=== PATIENT | female | born 1995 | race Caucasian/White ===

== ENCOUNTER 2021-06-03 22:40 | Inpatient (IN) | payer OTHER ==
[~2021-06-03] VITALS: Ht 167.6 cm; Wt 67.1 kg
[2021-06-03 22:56] VITALS: BP 136/87
--- NOTE | 2021-06-03 23:01 | NUR ---
Dr. Terrazas at triage to exam patient.
--- NOTE | 2021-06-03 23:30 | NUR ---
26 Y/O FEMALE BIB FAMILY MEMBER C/O OF THROAT PAIN X 1 DAY. UPON PALPATION OF THE THROAT, TENDERNESS, DIFFICULTY SWALLOWING, AND SOME SWELLING NOTED. PT TONGUE APPEARS ENLARGED, AND WHITE. PT DENIES N/V/D AND FEVER. PT DENIES HAVING DIFFICULTY BREATHING, SOB. RESPIRATIONS ARE EVEN AND UNLABORED. PT DENIES TAKING ANY MEDICATION TO TREAT SYMPTOMS. PT A&OX4. PMEDHX: ANEMIA NKDA
[2021-06-03] MEDS ORDERED: KETOROLAC 30 MG/ML VIAL IVP ONE (23:35)
[2021-06-03] MEDS ORDERED: MORPHINE SULFATE 4 MG/ML SYR IVP ONE (23:35)
[2021-06-03] MEDS ORDERED: ONDANSETRON 4 MG/2 ML VIAL IVP ONE (23:35)
[2021-06-03] MEDS ORDERED: CLINDAMYCIN 600 MG in DEXTROSE 5% 50 ML IV ONE (23:35)
[2021-06-03] MEDS ORDERED: DEXAMETHASONE 10 MG/ML VIAL IVP ONE (23:35)
[2021-06-03] MEDS ORDERED: cefTRIAXone 2,000 MG in DEXTROSE 5% 100 ML IV ONE (23:35)
[2021-06-03 23:52] LABS: BASOPHILS # (AUTO) 0.1 K/uL (0.00-0.22); BASOPHILS % (AUTO) 0.6 % (0.0-2.0); EOSINOPHILS # (AUTO) 0.1 K/uL (0-0.4); HEMATOCRIT 41.2 % (36-48); HEMOGLOBIN 13.9 g/dL (12.0-16.0); LYMPHOCYTES # (AUTO) 1.4 K/uL (2.5-16.5); LYMPHOCYTES % (AUTO) 12.2 % (20.5-51.1); MEAN CORPUSCULAR HEMOGLOBIN 28 pg (27-31); MEAN CORPUSCULAR HGB CONC 34 g/dL (33-37); MEAN CORPUSCULAR VOLUME 84.1 fL (80-94); MONOCYTES # (AUTO) 0.9 K/uL (0.8-1.0); MONOCYTES % (AUTO) 7.6 % (1.7-9.3); NEUTROPHILS % (AUTO) 78.6 % (42.2-75.2); PLATELET COUNT (AUTO) 257 K/uL (140-450); RED BLOOD CELL COUNT(AUTO) 4.89 MIL/uL (4.20-5.40); RED CELL DISTRIBUTION WIDTH 15.4 % (11.6-13.7); WHITE BLOOD COUNT (AUTO) 11.4 K/uL (4.8-10.8)
--- NOTE | 2021-06-03 23:53 | NUR ---
Ambulatory to bed 2 , Patient 's family at bedside.
--- NOTE | 2021-06-03 23:53 | NUR ---
PT AMBULATED TO BED 02.
[2021-06-04 00:45] LABS: ANION GAP 12.8 (8-16); CARBON DIOXIDE 28.2 mmol/L (21-32)
[2021-06-04 00:51] LABS: ALBUMIN 4.4 g/dL (3.4-5.0); CREATININE 0.9 mg/dL (0.6-1.3)
[2021-06-04] MEDS ORDERED: cefTRIAXone 1,000 MG VIAL ONE (00:55)
[2021-06-04] MEDS ORDERED: cefTRIAXone 2,000 MG VIAL ONE (00:57)
[2021-06-04] MEDS ORDERED: DEXAMETHASONE 10 MG/ML VIAL ONE (00:59)
[2021-06-04] MEDS ORDERED: KETOROLAC 30 MG/ML VIAL ONE (01:00)
[2021-06-04] MEDS ORDERED: ONDANSETRON 4 MG/2 ML VIAL ONE (01:01)
[2021-06-04] MEDS ORDERED: CLINDAMYCIN 600 MG/4 ML VIAL ONE (01:02)
--- NOTE | 2021-06-04 01:20 | NUR ---
pt taken to ct
--- NOTE | 2021-06-04 01:28 | NUR ---
pt back from ct
[2021-06-04] MEDS ORDERED: MORPHINE SULFATE 4 MG/ML SYR ONE (02:30)
--- NOTE | 2021-06-04 03:00 | NUR ---
DR ledezma at the bedside
[2021-06-04] MEDS ORDERED: NACL 0.9% 1,000 ML IV ONE ×2 (03:05)
--- NOTE | 2021-06-04 03:43 | NUR ---
PT ADMITTED TELE HOLD BED 2
--- NOTE | 2021-06-04 04:49 | NUR ---
PT AMBULATED TO THE RESTROOM WITH STEADY GAIT
--- NOTE | 2021-06-04 07:13 | NUR ---
REPORT GIVEN THERESA GARRIDO, TRANSFER OF CARE AT THIS TIME.
--- NOTE | 2021-06-04 07:13 | NUR ---
REPORT RECEIVED FROM RADHIKA RICO, TRANSFER OF CARE AT THIS TIME.
--- NOTE | 2021-06-04 07:25 | NUR ---
RECEIVED REPORT FROM ER NURSE FOR CONTINUITY OF CARE.PT ARRIVED VIA GURNEY AND AMBULATED TO BED WITH STEADY GAIT. ALERT AND AWAKE. A&OX4. ON ROOM AIR, WITH BREATHING UNLABORED. CONTINENT OF THE BOWEL AND BLADDER. SKIN IS WARM, DRY AND INTACT. IV IS IN LEFT AC 20G AND RUNNING FLUIDS ORDERED. PT IS STABLE, AND PLAN OF CARE DISCUSSED.
[2021-06-04] MEDS ORDERED: MORPHINE SULFATE 2 MG/ML SYR IVP PRN (07:35)
[2021-06-04] MEDS ORDERED: LORazepam 2 MG/ML VIAL IM/IVP PRN (07:35)
[2021-06-04] MEDS ORDERED: ZOLPIDEM 5 MG TAB PO PRN (07:35)
[2021-06-04] MEDS ORDERED: DOCUSATE SODIUM 100 MG GELCAP PO PRN (07:35)
[2021-06-04] MEDS ORDERED: SODIUM PHOS / POTASSIUM PHOS 1 PKT PDR PO PRN (07:35)
[2021-06-04] MEDS ORDERED: ONDANSETRON 4 MG/2 ML VIAL IVP PRN (07:35)
[2021-06-04] MEDS ORDERED: POTASSIUM CHLORIDE 10 MEQ TABER PO PRN (07:35)
[2021-06-04] MEDS ORDERED: MAG SULF 2000 MG/WATER PREMIX 50 ML IV PRN (07:35)
[2021-06-04] MEDS ORDERED: ACETAMINOPHEN 325 MG TAB PO PRN (07:35)
--- NOTE | 2021-06-04 07:40 | NUR ---
Patient will be admitted to care of Dr Garcia. Admited to TELE FLOOR. Will go to room 106-A. Belongings list completed. Report to RADHIKA IBRAHIM.
[2021-06-04 08:00] VITALS: BP 111/65
[2021-06-04 09:32] LABS: PROTHROMBIN TIME 10.7 secs (10.8-13.4)
[2021-06-04 09:35] LABS: CHOL/HDL RATIO 2.4 (1-4.5); FREE T4 (FREE THYROXINE) 0.88 ng/dL (0.76-1.46); PHOSPHORUS 3.7 mg/dL (2.5-4.9); THYROID STIMULATING HORMONE 0.57 uIU/mL (0.34-3.74)
[2021-06-04] MEDS: NACL 0.9% 1,000 ML IV SCH ×2 (09:57→17:40)
--- NOTE | 2021-06-04 10:00 | NUR ---
SWABBED THROAT FOR CULTURE-STREP B, AND SENT TO LAB. MRSA SWAB ALSO COLLECTED. PT WENT TO THE RESTROOM INDEPENDENTLY WITH STEADY GAIT. PT. DENIES PAIN AT THIS TIME. NO SIGNS OF RESPIRATORY DISTRESS. V/S WERE WITHIN NORMAL LIMITS.
[2021-06-04 11:12] LABS: APPEARANCE,URINE HAZY (CLEAR); BILIRUBIN,URINE NEGATIVE (NEGATIVE); BLOOD, URINE NEGATIVE (NEGATIVE); COLOR,URINE YELLOW (YELLOW); LEUKOCYTE ESTERASE ,URINE NEGATIVE (NEGATIVE); NITRITE, URINE NEGATIVE (NEGATIVE); PH,URINE 6.5 (5.0-9.0); UGLUCOSE NEGATIVE (NEGATIVE)
[2021-06-04 11:42] LABS: CALCIUM OXALATE CRYSTALS,UR None Seen /HPF (None Seen); RBC,URINE NONE SEEN /HPF (0-5); TRICHOMONAS,URINE None Seen /HPF (None Seen); URIC ACID CRYSTALS,URINE None Seen /HPF (None Seen); WBC,URINE NONE SEEN /HPF (0-5); YEAST,URINE None Seen /HPF (None Seen)
[2021-06-04 11:43] LABS: COARSE GRANULAR CASTS,URINE None Seen /LPF (None Seen); FINE GRANULAR CASTS,URINE None Seen /LPF (None Seen); HYALINE CASTS, URINE None Seen /LPF (None Seen); OTHER CASTS, URINE None Seen /LPF (None Seen); OTHER CRYSTALS,URINE None Seen /HPF (None Seen); RED BLOOD CELL CASTS,URINE None Seen /LPF (None Seen); TRIPLE PHOSPHATE CRYSTAL,UR None Seen /HPF (None Seen); URINE AMORPHOUS URATE None Seen /HPF (None Seen); WAXY CASTS,URINE None Seen /LPF (None Seen)
[2021-06-04 11:48] LABS: BARBITURATE, URINE NEGATIVE ng/ml (NEG <=200); BENZODIAZEPINE, URINE NEGATIVE ng/mL (NEG <=200); CANNABINOID, URINE POSITIVE ng/mL (NEG <=50); COCAINE, URINE NEGATIVE ng/mL (NEG <=300); OPIATE, URINE NEGATIVE ng/mL (NEG <=2000); PHENCYCLIDINE SCREEN,URINE NEGATIVE ng/mL (NEG <=25)
[2021-06-04 12:00] VITALS: BP 106/71
[2021-06-04] MEDS: AMPICILLIN/SULBACTAM 3 GM in NACL 0.9% 100 ML IV SCH ×3 (12:59→23:42)
--- NOTE | 2021-06-04 13:00 | NUR ---
PT IS STABLE, NO DISTRESS NOTED. SITTING UP ON BED ON CELLPHONE.FLUIDS ARE RUNNING AND IV TUBES PATENT. WILL CONTINUE TO MONITOR.
--- NOTE | 2021-06-04 14:11 | NUR ---
DC PLANNING: THE PATIENT PRESENTED TO THE ED FROM HOME WITH C/O SORE THROAT. CT NECK SHOWS TONSILLITIS WITH DEVELOPING SMALL ABSCESS. PATIENT UNABLE TO SWALLOW, GIVEN TORADOL, DECADRON, ROCEPHIN AND CLINDAMYCIN WITHOUT IMPROVEMENT, ADMITTED FOR OBSERVATION AND TREATMENT. ID CONSULT ORDERED WELL BC'S AND THROAT CULTURE FOR STREP. ON AMPICILLIN AND IVF'S. CM SPOKE WITH THE PATIENT AT BEDSIDE AND CONFIRMED HER ADDRESS AND PHONE NUMBER. SHE LIVES WITH HER BROTHER IN A SECOND FLOOR APARTMENT AND IS IN THE PROCESS OF GETTING [facility], SHE THINKS WITH [facility]. IS NEWLY EMPLOYED AND INDEPENDENT IN ALL ACTIVITIES WITHOUT DEFICITS. DC PLAN IS TO RETURN HOME WHEN CLINICALLY STABLE, CM WILL FOLLOW FOR NEEDS. Addendum: 06/04/21 at 1418 by Lashell Amin CM Amended: Links added.
--- NOTE | 2021-06-04 16:00 | NUR ---
PT. LYING COMFORTABLY ON BED, USING HER CELLPHONE. DENIES PAIN OF THIS TIME. BED ON THE LOWEST POSITION. CALL LIGHT IN REACH. WILL CONTINUE TO MONITOR.
--- NOTE | 2021-06-04 16:19 | NUR ---
PATIENT HAS BEEN SCREENED AND CATEGORIZED HIGH NUTRITION RISK. PATIENT WILL BE SEEN WITHIN 1-2 DAYS OF ADMISSION. / SEVER[address] FER[address]
--- NOTE | 2021-06-04 17:24 | NUR ---
06/04/21 RD INITIAL ASSESSMENT COMPLETED PLEASE REFER TO NUTRITION ASSESSMENT UNDER CARE ACTIVITY FOR ESTIMATED NUTRITIONAL NEEDS. 1. CONTINUE REGULAR DIET TOLERATED -WILL PROVIDE NON-SPICY FOODS -RECOMMEND ENSURE BID IF PO INTAKE IS < 75% 2. RD TO FOLLOW-UP 7 DAYS, LOW RISK (DOWNGRADED D/T PT WITH NO DIFFICULTY EATING) [address]ER[address]
[2021-06-04] MEDS: HYDROcodone/APAP 5/325 MG 1 TAB TAB PO PRN (17:46)
--- NOTE | 2021-06-04 17:46 | NUR ---
PT STATES SHE HAS PAIN IN HER RIGHT SIDE OF THROAT, AT A SCALE OF 6 OUT OF 10. PT WAS GIVEN NORCO FOR PAIN. WILL MONITOR PAIN.
[2021-06-04 18:00] VITALS: BP 102/60
--- NOTE | 2021-06-04 19:20 | NUR ---
ENDORSED PT TO TRAVELING OPERATOR NURSE FOR CONTINUITY OF CARE. PT IS STABLE. PLAN OF CARE DISCUSSED.
--- NOTE | 2021-06-04 19:55 | NUR ---
RECEIVED REPORT FROM DAY SHIFT NURSE FOR CONTINUITY OF CARE.PT AWAKE, ALERT AND ORIENTED. RESTING IN BED. ON ROOM AIR, WITH BREATHING EQUAL AND UNLABORED. AFEBRILE. SKIN IS WARM, DRY AND INTACT. IV IS IN LEFT AC 20G AND RUNNING FLUIDS ORDERED. PT IS STABLE, AND PLAN OF CARE DISCUSSED.
[2021-06-04 20:00] VITALS: BP 104/60
--- NOTE | 2021-06-04 22:30 | NUR ---
ROUNDS MADE. PT AWAKE, USING HER PHONE.NO DISTRESS NOTED. NO COMPLAINS AT THIS TIME. PROVIDED WARM WATER. ALL PRECAUTIONS IN PLACE. WILL CONTINUE TO MONITOR.
[2021-06-05] VITALS: BP 106/61
--- NOTE | 2021-06-05 | NUR ---
SCHEDULED MEDICATIONS GIVEN. OT TOLERATED WELL. NO DISTRESS NOTED.
--- NOTE | 2021-06-05 00:30 | NUR ---
VS STABLE.BREATHING EQUAL AND UNLABORED. NO S/SX OF DISTRESS NOTED. ALL PRECAUTIONS IN PLACE. CALL LIGHT WITHIN REACH.WILL CONTINUE TO MONITOR.
[2021-06-05 04:00] VITALS: BP 97/67
--- NOTE | 2021-06-05 04:17 | NUR ---
PT ASLEEP.BREATHING EQUAL AND UNLABORED. NO S/SX OF DISTRESS NOTED. ALL PRECAUTIONS IN PLACE. CALL LIGHT WITHIN REACH.WILL CONTINUE TO MONITOR.
[2021-06-05] MEDS: NACL 0.9% 1,000 ML IV SCH (05:00)
--- NOTE | 2021-06-05 05:00 | NUR ---
SCHEDULED MEDICATIONS GIVEN. OT TOLERATED WELL. NO DISTRESS NOTED.
[2021-06-05] MEDS: AMPICILLIN/SULBACTAM 3 GM in NACL 0.9% 100 ML IV SCH ×2 (05:17→11:24)
[2021-06-05] MEDS: HYDROcodone/APAP 5/325 MG 1 TAB TAB PO PRN (05:17)
[2021-06-05 06:37] LABS: BASOPHILS # (AUTO) 0.1 K/uL (0.00-0.22); BASOPHILS % (AUTO) 0.6 % (0.0-2.0); EOSINOPHILS # (AUTO) 0.1 K/uL (0-0.4); EOSINOPHILS % (AUTO) 1.2 % (0.0-4.0); HEMATOCRIT 34.1 % (36-48); HEMOGLOBIN 11.5 g/dL (12.0-16.0); LYMPHOCYTES # (AUTO) 2.3 K/uL (2.5-16.5); LYMPHOCYTES % (AUTO) 22.8 % (20.5-51.1); MEAN CORPUSCULAR HEMOGLOBIN 29 pg (27-31); MEAN CORPUSCULAR HGB CONC 34 g/dL (33-37); MEAN CORPUSCULAR VOLUME 85.4 fL (80-94); MONOCYTES # (AUTO) 0.8 K/uL (0.8-1.0); MONOCYTES % (AUTO) 7.6 % (1.7-9.3); NEUTROPHILS # (AUTO) 6.9 K/uL (1.8-7.7); NEUTROPHILS % (AUTO) 67.8 % (42.2-75.2); PLATELET COUNT (AUTO) 183 K/uL (140-450); RED BLOOD CELL COUNT(AUTO) 3.99 MIL/uL (4.20-5.40); RED CELL DISTRIBUTION WIDTH 15.6 % (11.6-13.7); WHITE BLOOD COUNT (AUTO) 10.2 K/uL (4.8-10.8)
--- NOTE | 2021-06-05 06:59 | NUR ---
PT IS STABLE. NO ACUTE EVENTS THROUGHOUT THE NIGHT. NO S/SX OF DISTRESS OF THE MOMENT.ALL NEEDS ATTENDED. ALL PRECAUTIONS IN PLACE. CALL LIGHT WITHIN REACH. WILL ENDORSE TO AM SHIFT NURSE.
--- NOTE | 2021-06-05 07:20 | NUR ---
HANDOFF REPORT RECEIVED FROM PM SHIFT RADHIKA FLOWER FOR CONTINUITY OF CARE. PT. MALERT. STABLE. BREATHINGS EVEN AND UNLABORED. SAFETY MEASURES IN PLACED. WILL CONTINUE TO MONITOR THE PT.
[2021-06-05 08:00] VITALS: BP 105/71
--- NOTE | 2021-06-05 10:09 | NUR ---
PT. ALERT, AWAKE. SITTING IN THE BED. NOT IN DISTRESS. STABLE ON ROOM AIR. CONT. MONITORING THE PT.
[2021-06-05 10:57] LABS: ALBUMIN 3.1 g/dL (3.4-5.0); ANION GAP 14.4 (8-16); CARBON DIOXIDE 22.3 mmol/L (21-32); CREATININE 0.7 mg/dL (0.6-1.3); POTASSIUM 3.7 mmol/L (3.5-5.1); TOTAL BILIRUBIN 0.4 mg/dL (0.0-1.0)
[2021-06-05 12:00] VITALS: BP 103/69
--- NOTE | 2021-06-05 13:30 | NUR ---
ROUNDS. PT. SITTING IN THE BED. NO ANY ACUTED DISTRESS NOTED. STABLE ON ROOM AIR. ALL SAFETY MEASURES IN PLACE. CALL LIGHT WITHIN REACH. WILL CONT. TO MONITOR THE PT.
--- NOTE | 2021-06-05 16:00 | NUR ---
PT. WANTED TO GO AMA. RADHIKA CARRERA NOTIFIED TO MD DR. JOSEPH MERRILL. SAID OK . PT. SIGNED THE AMA PAPER. PT'S AUNT WAS AT BEDSIDE. PT. LEFT AMA WITH HER AUNT.
== END 2021-06-05 16:09 | disposition left against medical advice (07) | DRG 152 ==
LOC: MED 22:40 → MTU 06-04 03:43
PROVIDERS: ADMIT Student in an Organized Health Care Education/Training Program; ATTEND Student in an Organized Health Care Education/Training Program
DX: J02.9 Acute pharyngitis, unspecified (principal); K85.90 Acute pancreatitis without necrosis or infection, unspecified; Z20.822 Contact with and (suspected) exposure to COVID-19; Z83.3 Family history of diabetes mellitus; Z82.49 Family history of ischemic heart disease and other diseases of the circulatory system; Z80.9 Family history of malignant neoplasm, unspecified
CPT/HCPCS: 36415; 70491; 71045; 80053; 80305; 81001; 82150; 83036; 83605; 83690; 83735; 83880; 84100; 84439; 84443; 85025; 85610; 85730; 86308; 87040; 87081; 93005; J0295; J0696; J1100; J1885; J2270; J2405; J3490; Q9967